=== PATIENT | male | born 1940 | race Two or more races ===

== ENCOUNTER 2017-04-28 14:11 | Inpatient (IN) | payer MEDICARE, BC ==
[~2017-04-28] VITALS: Ht 177.8 cm; Wt 105.7 kg
[2017-04-28] MEDS ORDERED: ASPI-605 PO (14:29)
[2017-04-28] MEDS ORDERED: OXYB5TAB11 PO (14:29)
[2017-04-28] MEDS ORDERED: HYDROCODONE PO (14:29)
[2017-04-28] MEDS ORDERED: DONE10TA44 PO (14:29)
[2017-04-28] MEDS ORDERED: METF10004 PO (14:29)
[2017-04-28] MEDS ORDERED: RISP0.5T20 PO (14:29)
[2017-04-28] MEDS ORDERED: CITA20TA16 PO (14:29)
[2017-04-28] MEDS ORDERED: LISI-603 PO (14:29)
[2017-04-28] MEDS ORDERED: TRAZ-144 PO (14:29)
[2017-04-28] MEDS ORDERED: BUPR-51 PO (14:29)
[2017-04-28] MEDS ORDERED: TAMS0.4C34 PO (14:29)
--- NOTE | 2017-04-28 14:29 | NUR ---
Dr Edwards at the bedside for MSE.
[2017-04-28] MEDS ORDERED: IV NORMAL SALINE 1000 ML BAG IV ONE (14:45)
[2017-04-28 15:07] LABS: BASOPHILS # (AUTO) 0.1 K/uL (0.0-8.0); BASOPHILS % (AUTO) 0.8 % (0.0-2.0); EOSINOPHILS # (AUTO) 0.1 K/uL (0.0-0.7); EOSINOPHILS % (AUTO) 0.7 % (0.0-7.0); HEMATOCRIT 31.5 % (36.7-47.1); HEMOGLOBIN 10.7 g/dL (12.5-16.3); LYMPHOCYTES # (AUTO) 1.2 K/uL (20.0-40.0); LYMPHOCYTES % (AUTO) 11.5 % (20.5-51.5); MEAN CORPUSCULAR HEMOGLOBIN 31.7 uug (23.8-33.4); MEAN CORPUSCULAR HGB CONC 34 g/dL (32.5-36.3); MEAN CORPUSCULAR VOLUME 93.8 fL (73.0-96.2); MONOCYTES # (AUTO) 0.9 K/uL (2.0-10.0); MONOCYTES % (AUTO) 8.8 % (0.0-11.0); NEUTROPHILS # (AUTO) 8.4 K/uL (1.8-8.9); NEUTROPHILS % (AUTO) 78.2 % (38.5-71.5); PLATELET COUNT (AUTO) 268 K/uL (152-348); RED BLOOD CELL COUNT(AUTO) 3.36 MIL/uL (4.06-5.63); WHITE BLOOD COUNT (AUTO) 10.7 K/uL (3.6-10.2)
[2017-04-28 15:22] LABS: ALANINE AMINOTRANSFERASE 28 U/L (16-63); ALKALINE PHOSPHATASE 68 U/L (50-136); ASPARTATE AMINOTRANSFERASE 32 U/L (15-37); BILIRUBIN,DIRECT 0.3 mg/dL (0.0-0.2); BILIRUBIN,TOTAL 1.1 mg/dL (0.2-1.0); CARBON DIOXIDE 26 mmol/L (21-32); CHLORIDE 103 mmol/L (98-107); CREATININE 0.9 mg/dL (0.6-1.3); GLUCOSE 149 mg/dL (74-106); LIPASE 59 U/L (73-393); POTASSIUM 3.7 mmol/L (3.5-5.1); TOTAL PROTEIN, SERUM 6.7 g/dL (6.4-8.2); UREA NITROGEN, BLOOD 24 mg/dL (7-18)
[2017-04-28 15:33] LABS: *BLOOD, URINE NEGATIVE (NEGATIVE); *CLARITY,URINE CLEAR (CLEAR); *COLOR,URINE DARK YELLOW (YELLOW); *KETONES,URINE TRACE (NEGATIVE); *PROTEIN,URINE 1+ (NEGATIVE); LEUKOCYTE ESTERASE ,URINE NEGATIVE (NEGATIVE); NITRITE, URINE NEGATIVE (NEGATIVE); PH,URINE 5.5 (5.0-8.0); UGLUCOSE NEGATIVE (NEGATIVE)
[2017-04-28 15:43] LABS: *BILIRUBIN,URIN NEGATIVE (NEGATIVE)
[2017-04-28 15:44] LABS: SQUAMOUS EPITHELIAL CELL,UR FEW /HPF (NONE SEEN); WBC,URINE 0-3 /HPF (0-3)
[2017-04-28 15:45] LABS: MUCUS,URINE MANY /LPF (0-FEW)
--- NOTE | 2017-04-28 15:45 | NUR ---
PATIENT ARRIVED TO UNIT AT 1545 VIA HOSPITAL BED FROM ER, STATES PAIN 5/10 BUT ONLY WHEN LEFT EXTREMITY IS MOVED, NO SIGNS OF DISTRESS, NO SKIN ISSUES NOTED, OBVIOUS BROKEN LEFT FEMUR, LEFT LEG ELEVATED ON PILLOW, VITALS FOLLOWS: 125/82, 93 PULSE, 98% ON ROOM AIR, 98.2 ORAL TEMPERATURE, 20 RESPIRATIONS, MD SALINAS NOTIFIED OF PATIENT'S ARRIVAL, ORDERS FOR PATIENT TO BE NPO OF MIDNIGHT 04/28/2017, INVENTORY ASSESSED, KATE FLEMING ON CASE FOR ORTHO Addendum: 04/28/17 at 1807 by WOLFGANG KIMBALL RN ORIENTED TO PERSON, PLACE AND TIME
[2017-04-28 16:00] VITALS: BP 125/82
--- NOTE | 2017-04-28 20:00 | NUR ---
RECEIVED PT. ALERT & FORGETFUL, FOLLOWS TO COMMAND.HEP LOCK INTACT & PATENT ON LFA. LEFT LEG IS SWOLLEN, ELEVATED ON PILLOW. DENIES PAIN. NOT IN ANY DISTRESS.
[2017-04-28 20:12] VITALS: BP 119/81
[2017-04-28] MEDS ORDERED: ONDANSETRON 4 MG/2 ML VIAL IV PRN (21:45)
[2017-04-28] MEDS ORDERED: FAMOTIDINE. 20 MG/2 ML VIAL IV ONE (21:45)
[2017-04-28] MEDS ORDERED: ALBUTEROL SULFATE 2.5 MG/3 ML NEBU NEB PRN (21:45)
[2017-04-28] MEDS ORDERED: ACETAMINOPHEN 650 MG SUPP.RECT RC PRN (21:45)
[2017-04-28] MEDS ORDERED: FAMOTIDINE 20 MG TABLET ONE (21:53)
[2017-04-28] MEDS ORDERED: LEVOFLOXACIN 500 MG/D5W 100 ML ONE (21:54)
[2017-04-28] MEDS: LEVOFLOXACIN 500 MG/D5W 500 MG in PREMIXED 1 EACH IV SCH (22:11)
[2017-04-28] MEDS: POTASSIUM CHLORIDE 20 MEQ in IV D5/ 0.9% NACL 1,000 ML IV PRN (22:32)
--- NOTE | 2017-04-28 22:32 | NUR ---
RICKEY IVF D5NS W/ 20MEQ KCL @ 70CC/HR. HS CARE DONE.
[2017-04-28] MEDS: MORPHINE SULFATE 4 MG/1 ML DISP.SYRIN IV PRN (23:26)
--- NOTE | 2017-04-28 23:26 | NUR ---
MEDICATED W/ MORPHINE 2MG IVP, V/S STABLE.
--- NOTE | 2017-04-28 23:40 | NUR ---
BUCKS TRACTION 5 LBS APPLIED ON LEFT LEG. PAS STOCKING APPLIED ON BOTH LOWER LEGS.
[2017-04-29] VITALS: BP 85/51
--- NOTE | 2017-04-29 | NUR ---
NPO AFTER MN.
[2017-04-29 04:00] VITALS: BP 98/57
--- NOTE | 2017-04-29 04:00 | NUR ---
V/S STABLE. DENIES PAIN.
--- NOTE | 2017-04-29 05:43 | NUR ---
REPOSITIONED IN BED W/ LEFT LEG ELEVATED ON PILLOW W/ BUCKS TRACTION IN PLACE.
[2017-04-29 06:33] LABS: BASOPHILS % (AUTO) 0.4 % (0.0-2.0); EOSINOPHILS # (AUTO) 0.1 K/uL (0.0-0.7); EOSINOPHILS % (AUTO) 1.2 % (0.0-7.0); HEMATOCRIT 28.9 % (36.7-47.1); HEMOGLOBIN 9.7 g/dL (12.5-16.3); LYMPHOCYTES # (AUTO) 1.8 K/uL (20.0-40.0); MEAN CORPUSCULAR HEMOGLOBIN 31.2 uug (23.8-33.4); MEAN CORPUSCULAR HGB CONC 34 g/dL (32.5-36.3); MEAN CORPUSCULAR VOLUME 93.3 fL (73.0-96.2); MONOCYTES # (AUTO) 0.9 K/uL (2.0-10.0); NEUTROPHILS # (AUTO) 5.6 K/uL (1.8-8.9); NEUTROPHILS % (AUTO) 66.4 % (38.5-71.5); PLATELET COUNT (AUTO) 270 K/uL (152-348); WHITE BLOOD COUNT (AUTO) 8.4 K/uL (3.6-10.2)
[2017-04-29 06:52] LABS: IRON, SERUM 51 ug/dL (50-175)
[2017-04-29 07:00] LABS: THYROID STIMULATING HORMONE 2.941 mIU/mL (0.358-3.740)
[2017-04-29 07:12] LABS: ALANINE AMINOTRANSFERASE 30 U/L (16-63); ALKALINE PHOSPHATASE 65 U/L (50-136); ASPARTATE AMINOTRANSFERASE 34 U/L (15-37); BILIRUBIN,TOTAL 0.9 mg/dL (0.2-1.0); CARBON DIOXIDE 29 mmol/L (21-32); CHLORIDE 103 mmol/L (98-107); CHOLESTEROL 136 mg/dL (<200); CREATININE 0.9 mg/dL (0.6-1.3); GLUCOSE 172 mg/dL (74-106); HDL CHOLESTEROL 58 mg/dL (40-60); MAGNESIUM 1.8 mg/dL (1.8-2.4); PHOSPHOROUS 2.4 mg/dL (2.5-4.9); POTASSIUM 3.6 mmol/L (3.5-5.1); TRIGLYCERIDES 64 MG/DL (30-150); UREA NITROGEN, BLOOD 27 mg/dL (7-18)
--- NOTE | 2017-04-29 08:00 | NUR ---
RESTING COMFORTABLY IN BED WITH 5LBS BUCKS TX MAINTAINED IN GOOD ALIGNMENT, NO SIGNS OF PAIN OR DISTRESS. REMAINS NPO WITH D2 NS PLUS KCL AT 70 ML/HR. REMAINS SR ON MONITOR. AWAITING SURGERY SCHEDULE BY DR LOVE
[2017-04-29] MEDS: FAMOTIDINE. 20 MG/2 ML VIAL IV SCH ×2 (08:02→22:33)
--- NOTE | 2017-04-29 10:00 | NUR ---
DR LOVE CALLED WITH ORDER FOR IM NAILING LEFT FEMUR. PATIENT AND DAUGHTER MADE AWARE. SCHEDULE FOR 4PM TODAY
[2017-04-29 11:30] VITALS: BP 90/43
--- NOTE | 2017-04-29 12:00 | NUR ---
DR JAVED NOTED LABS WITH ORDER FOR K-PHOS IV.
[2017-04-29] MEDS ORDERED: POTASSIUM PHOSPHATE MM 7.5 MMOL in IV DEXTROSE 5% 100 ML IV ONE (13:00)
[2017-04-29] MEDS ORDERED: POLYMYXIN B SULFATE 500,000 UNITS, BACITRACIN 50,000 UNITS, NORMAL SALINE 20 ML MC ONE ×3 (15:00)
[2017-04-29 15:40] VITALS: BP 133/74
[2017-04-29] MEDS: POTASSIUM CHLORIDE 20 MEQ in IV D5/ 0.9% NACL 1,000 ML IV PRN (16:23)
--- NOTE | 2017-04-29 17:30 | NUR ---
TO OR VIA BED ACCOMPANIED BY OR STAFF, ALSO SEE BY DR ARMENDARIZ SPOKE WITH FAMILY ABOUT SURGERY AND PLAN.
--- NOTE | 2017-04-29 17:50 | NUR ---
TRIPLE ANTIBIOTIC GIVEN IN OR
[2017-04-29] MEDS ORDERED: FENTANYL CITRATE 100 MCG/2 ML AMPUL ONE (20:58)
--- NOTE | 2017-04-29 21:30 | NUR ---
RECEIVED PT S/P IM NAILING OF LEFT FEMUR, DRESSING NOTED WITH BLOOD STAIN, MARKED WITH PEN.ICE PACKS APPLIED TO SITE. GOOD PALPABLE PERIPHERAL PULSES, DENIES ANY NUMBNESS, NO TINGLING. GIVEN MORPHINE FOR PAIN, STARTED REGULAR DIET, TOLERATED CRACKERS AND PUDDING AND JUICE. CONTINUE WITH IV FLUIDS AND ANTIBIOTICS,VSS,AFEBRILE, SINUS TACHY ON MONITOR HR 96. SCD ON , INCENTIVE SPIROMETER INSTRUCTED TO USE.WILL CONTINUE TO MONITOR.
[2017-04-29] MEDS: LEVOFLOXACIN 500 MG/D5W 500 MG in PREMIXED 1 EACH IV SCH (22:33)
[2017-04-29] MEDS: MORPHINE SULFATE 4 MG/1 ML DISP.SYRIN IV PRN (22:33)
[2017-04-30] VITALS: BP 108/79
[2017-04-30 04:00] VITALS: BP 116/69
[2017-04-30] MEDS: POTASSIUM CHLORIDE 20 MEQ in IV D5/ 0.9% NACL 1,000 ML IV PRN (05:28)
--- NOTE | 2017-04-30 06:28 | NUR ---
PT SLEPT WELL, CONTINUE WITH IV FLUIDS, BLOOD NOTED TO DRESSING SITE REMAINS THE SAME. NO SIGNIFICANT CHANGE OVERNIGHT, DENIES ANY PAIN. VSS AFEBRILE.SINUS RHYTHM/TACHY ON MONITOR.
[2017-04-30 07:18] LABS: ALANINE AMINOTRANSFERASE 47 U/L (16-63); ALKALINE PHOSPHATASE 62 U/L (50-136); ASPARTATE AMINOTRANSFERASE 44 U/L (15-37); BILIRUBIN,TOTAL 1.1 mg/dL (0.2-1.0); CARBON DIOXIDE 27 mmol/L (21-32); CHLORIDE 103 mmol/L (98-107); CREATININE 0.8 mg/dL (0.6-1.3); MAGNESIUM 1.8 mg/dL (1.8-2.4); PHOSPHOROUS 2.2 mg/dL (2.5-4.9); POTASSIUM 4.2 mmol/L (3.5-5.1); TOTAL PROTEIN, SERUM 6.3 g/dL (6.4-8.2); UREA NITROGEN, BLOOD 20 mg/dL (7-18)
[2017-04-30 07:27] LABS: GLUCOSE 223 mg/dL (74-106)
--- NOTE | 2017-04-30 08:00 | NUR ---
AWAKE ALERT AND ORIENTED X3 C/O SLIGHT MARTINEZ VS WNL. DRESSING LEFT HIP CLEAN WITH SLIGHT SEROUS SANGUINOUS DRAINAGE MIDDLE PART OF SURGICAL DRESSING. WIGGLE TOES FREELY WITH GOOD CAPILLARY REFILL. AFEBRILE. REMAINS SR ON MONITOR
[2017-04-30] MEDS: FAMOTIDINE. 20 MG/2 ML VIAL IV SCH ×2 (08:22→20:54)
[2017-04-30] MEDS: CYANOCOBALAMIN 1000 MCG/ML VIAL IM SCH (08:22)
[2017-04-30] MEDS: MORPHINE SULFATE 4 MG/1 ML DISP.SYRIN IV PRN (08:22)
[2017-04-30] MEDS ORDERED: MORPHINE SULFATE 4 MG/1 ML DISP.SYRIN IV PRN (10:30)
[2017-04-30] MEDS ORDERED: IV D5W-0.45% NS +20 KCL 1,000 ML IV PRN (10:30)
--- NOTE | 2017-04-30 10:38 | NUR ---
SEEN BY PHYSICAL THERAPIST FOR EVAL POST-OP DAY 1 SEE NOTES
[2017-04-30 11:37] VITALS: BP 125/72
[2017-04-30] MEDS ORDERED: NEUTRA PHOS PACKET PO ONE (12:15)
[2017-04-30] MEDS: HYDROCODONE/APAP 10-325 MG TABLET PO PRN (12:53)
[2017-04-30 16:00] VITALS: BP 154/67
[2017-04-30] MEDS: RIVAROXABAN 10 MG TABLET PO SCH (17:31)
--- NOTE | 2017-04-30 18:09 | NUR ---
DR ARMENDARIZ IN AWARE OF LOW PHOS, DAUGHTER SPOKE WITH MILL OPERATOR HELPER REGARDING DC PLAN, PATIENT STATUS CHANGED TO MS
[2017-04-30 20:06] VITALS: BP 128/74
[2017-04-30] MEDS: LEVOFLOXACIN 500 MG/D5W 500 MG in PREMIXED 1 EACH IV SCH (20:56)
[2017-05-01 03:59] VITALS: BP 128/79
--- NOTE | 2017-05-01 05:41 | NUR ---
PT SLEPT INTERMITTENTLY THROUGH THE NIGHT AND WAS EASILY AWOKEN, PT DENIED HAVING ANY PAIN, WHEN GENTLY PALPATING THE SURGICAL AREA PT DID COMPLAIN OF TENDERNESS BUT REFUSED ANY PAIN MEDICATION. PT DENIED HAVING ANY DIFFICULTY BREATHING. SMALL AREA OF THE SURGICAL INCISION SIGHT IS DRAINING SMALL AMOUNT OF SANGUINOUS FLUID. DRESSING CHANGED FOR SMALL INCISION. ALL NEEDS MET, SAFETY MEASURES ARE IN PLACE, CALL LIGHT WITHIN REACH, BED ALARM IS ON.
[2017-05-01 06:39] LABS: BASOPHILS # (AUTO) 0.1 K/uL (0.0-8.0); BASOPHILS % (AUTO) 0.4 % (0.0-2.0); EOSINOPHILS # (AUTO) 0.1 K/uL (0.0-0.7); EOSINOPHILS % (AUTO) 0.9 % (0.0-7.0); HEMATOCRIT 25.6 % (36.7-47.1); HEMOGLOBIN 8.6 g/dL (12.5-16.3); LYMPHOCYTES # (AUTO) 1.8 K/uL (20.0-40.0); LYMPHOCYTES % (AUTO) 15.6 % (20.5-51.5); MEAN CORPUSCULAR HEMOGLOBIN 31.4 uug (23.8-33.4); MEAN CORPUSCULAR HGB CONC 34 g/dL (32.5-36.3); MEAN CORPUSCULAR VOLUME 93.5 fL (73.0-96.2); MONOCYTES # (AUTO) 1.3 K/uL (2.0-10.0); NEUTROPHILS # (AUTO) 8.4 K/uL (1.8-8.9); NEUTROPHILS % (AUTO) 72.1 % (38.5-71.5); PLATELET COUNT (AUTO) 308 K/uL (152-348); RED BLOOD CELL COUNT(AUTO) 2.74 MIL/uL (4.06-5.63); WHITE BLOOD COUNT (AUTO) 11.6 K/uL (3.6-10.2)
[2017-05-01 06:46] LABS: ALANINE AMINOTRANSFERASE 47 U/L (16-63); ALKALINE PHOSPHATASE 64 U/L (50-136); ASPARTATE AMINOTRANSFERASE 38 U/L (15-37); BILIRUBIN,TOTAL 1.2 mg/dL (0.2-1.0); CARBON DIOXIDE 29 mmol/L (21-32); CHLORIDE 99 mmol/L (98-107); CREATININE 0.8 mg/dL (0.6-1.3); GLUCOSE 169 mg/dL (74-106); MAGNESIUM 1.6 mg/dL (1.8-2.4); PHOSPHOROUS 2.2 mg/dL (2.5-4.9); POTASSIUM 3.8 mmol/L (3.5-5.1); TOTAL PROTEIN, SERUM 6.1 g/dL (6.4-8.2); UREA NITROGEN, BLOOD 20 mg/dL (7-18)
[2017-05-01] MEDS: FAMOTIDINE. 20 MG/2 ML VIAL IV SCH (08:53)
[2017-05-01] MEDS: CYANOCOBALAMIN 1000 MCG/ML VIAL IM SCH (08:53)
[2017-05-01] MEDS: HYDROCODONE/APAP 10-325 MG TABLET PO PRN (09:55)
[2017-05-01 11:40] VITALS: BP 136/74
[2017-05-01 15:40] VITALS: BP 119/66
[2017-05-01] MEDS ORDERED: NEUTRA PHOS PACKET PO ONE (15:45)
[2017-05-01] MEDS: MAGNESIUM SULFATE/D5W 100 ML IV SCH ×2 (17:04→18:21)
[2017-05-01] MEDS: RIVAROXABAN 10 MG TABLET PO SCH (17:06)
--- NOTE | 2017-05-01 18:52 | NUR ---
Patient resting in bed, in no distress. Pain medication provided to patient prior to physical therapy. Patient denies pain, refused pain medication throughout the shift. Dressing on left hip/thigh clean/dry/intact, no bleeding noted. Temperature noted at 99.6, cooling measures provided. Patient is voiding, diaper moderately saturated with urine. Safety measures in place, bed alarm on.
--- NOTE | 2017-05-01 19:30 | NUR ---
PT IN ROOM ALERT AWAKE AND ORIENTED IN NO ACUTE DISTRESS. STATES MINIMAL PAIN TO LEFT LOWER EXTREMITY FX. ABLE TO FOLLOW SIMPLE COMMANDS. PT ENCOURAGED DEEP BREATHING EXERCISES INCLUDING TO USE IS. V/S ARE WNL WITH NO FEVER OR CHILLS. CONTINUE TO MONITOR. BOWEL SOUNDS ACTIVE X 4. REPORTS BM YESTERDAY PER PT. PT TO BE REPOSITIONED WITH 3 SIDE RAILS RAISED. CONTINUE TO MONITOR.
[2017-05-01] MEDS: FAMOTIDINE 20 MG TABLET PO SCH (20:00)
[2017-05-01 20:22] VITALS: BP 127/71
[2017-05-01] MEDS: LEVOFLOXACIN 500 MG/D5W 500 MG in PREMIXED 1 EACH IV SCH (21:00)
[2017-05-01] MEDS ORDERED: CEFTRIAXONE 1 G VIAL ONE (21:53)
[2017-05-01] MEDS: CEFTRIAXONE 1 G in IV DEXTROSE 5% 50 ML IV SCH (22:05)
[2017-05-02 04:00] VITALS: BP 168/86
--- NOTE | 2017-05-02 05:52 | NUR ---
PT IN ROOM ALERT AWAKE IN NO ACUTE DISTRESS. PT STATES MINOR PAIN. BP NOTED 168/86. NO FEVER OR CHILLS. AFFECTED LEFT LEG/HIP AREA MAINTAINED ON PILLOW. DRESSING TO LEFT KNEE REINFORCED WITH MEPILEX. PT ABLE TO FOLLOW SIMPLE COMMANDS. DENIES ANY SOB. ENCOURAGED DEEP BREATHING EXERCISES USING IS. HOB MAINTAINED 30 DEGREES WITH 3 SIDE RAILS RAISED. TYLENOL PRN TO BE ADMINISTERED FOR COMFORT MEASURES.
[2017-05-02] MEDS: ACETAMINOPHEN 325 MG TABLET PO PRN ×2 (06:16→19:57)
[2017-05-02 06:31] LABS: BASOPHILS % (AUTO) 0.1 % (0.0-2.0); LYMPHOCYTES % (AUTO) 7.2 % (20.5-51.5); MEAN CORPUSCULAR HGB CONC 34 g/dL (32.5-36.3); MONOCYTES # (AUTO) 1.4 K/uL (2.0-10.0); MONOCYTES % (AUTO) 9.8 % (0.0-11.0); NEUTROPHILS # (AUTO) 11.8 K/uL (1.8-8.9); NEUTROPHILS % (AUTO) 82.9 % (38.5-71.5)
[2017-05-02 06:39] LABS: CARBON DIOXIDE 24 mmol/L (21-32); CHLORIDE 97 mmol/L (98-107); CREATININE 0.8 mg/dL (0.6-1.3); GLUCOSE 233 mg/dL (74-106); MAGNESIUM 1.8 mg/dL (1.8-2.4); PHOSPHOROUS 2.3 mg/dL (2.5-4.9); POTASSIUM 3.5 mmol/L (3.5-5.1); UREA NITROGEN, BLOOD 16 mg/dL (7-18)
[2017-05-02 06:41] LABS: WHITE BLOOD COUNT (AUTO) 14.1 K/uL (3.6-10.2)
[2017-05-02 06:42] LABS: HEMATOCRIT 27.5 % (36.7-47.1); HEMOGLOBIN 9.3 g/dL (12.5-16.3); MEAN CORPUSCULAR HEMOGLOBIN 31.3 uug (23.8-33.4); MEAN CORPUSCULAR VOLUME 92.4 fL (73.0-96.2); RED BLOOD CELL COUNT(AUTO) 2.97 MIL/uL (4.06-5.63)
[2017-05-02 06:43] LABS: PLATELET COUNT (AUTO) 407 K/uL (152-348)
[2017-05-02] MEDS: CALCIUM CARB/VITAMIN D 500MG-200UNITS TABLET PO SCH ×2 (08:33→20:00)
[2017-05-02] MEDS: FAMOTIDINE 20 MG TABLET PO SCH ×2 (08:33→20:00)
[2017-05-02] MEDS: DOCUSATE SODIUM 100 MG CAPSULE PO SCH ×2 (08:33→20:00)
[2017-05-02] MEDS: MIRALAX 17 GM POWD.PACK PO SCH (08:34)
[2017-05-02] MEDS: CYANOCOBALAMIN 1000 MCG/ML VIAL IM SCH (08:34)
[2017-05-02] MEDS: HYDROCODONE/APAP 10-325 MG TABLET PO PRN (08:35)
[2017-05-02 11:29] VITALS: BP 126/72
[2017-05-02 14:50] LABS: *BILIRUBIN,URIN NEGATIVE (NEGATIVE); *BLOOD, URINE 1+ (NEGATIVE); *CLARITY,URINE SLIGHTLY CLOUDY (CLEAR); *COLOR,URINE YELLOW (YELLOW); *KETONES,URINE NEGATIVE (NEGATIVE); *PROTEIN,URINE NEGATIVE (NEGATIVE); LEUKOCYTE ESTERASE ,URINE NEGATIVE (NEGATIVE); NITRITE, URINE NEGATIVE (NEGATIVE)
[2017-05-02 14:56] LABS: BACTERIA,URINE NONE SEEN /HPF (NONE SEEN); UGLUCOSE 3+ (NEGATIVE); WBC,URINE 0-3 /HPF (0-3)
[2017-05-02 14:57] LABS: SQUAMOUS EPITHELIAL CELL,UR FEW /HPF (NONE SEEN)
[2017-05-02 15:46] VITALS: BP 114/68
[2017-05-02] MEDS ORDERED: NEUTRA PHOS PACKET PO ONE (16:30)
[2017-05-02] MEDS: RIVAROXABAN 10 MG TABLET PO SCH (17:04)
--- NOTE | 2017-05-02 18:11 | NUR ---
Pt resting in bed, in no distress. Dressing/sean on left thigh and leg intact/clean/dry, scant bleeding noted. Patient kept clean/dry, repositioned for comfort. Pain management as ordered. Safety measures in place, bed alarm on. Addendum: 05/02/17 at 1815 by WILBER MOROCHO RN Add: Incentive spirometer at bedside, instructed patient to use as ordered when awake, patient acknowledged but is unable to return demonstration.
--- NOTE | 2017-05-02 19:30 | NUR ---
PT IN ROOM ALERT AWAKE ORIENTED SUPINE IN NO ACUTE DISTRESS. ABLE TO FOLLOW SIMPLE COMMANDS. NO REPORTS OF FEVER OR CHILLS NOTED. C/O MINOR PAIN TO LEFT HIP AND LOWER EXTREMITY. NO ACTIVE BLEEDING PRESENT TO SITE OR DRAINAGE. PT REPOSITIONED AND REMINDED TO CONTINUE USING IS UP TO 1X Q 2 HRS. ENCOURAGED PT TO INCREASE FLUID INTAKE TO PREVENT CONSTIPATION. PT REPOSITIONED WITH HOB ELEVATED 30 DEGREES. TYLENOL PRN PO TO BE ADMINISTERED ALONG ROUTINE HS MEDICATIONS FOR COMFORT MEASURES. LEFT LOWER LEG ELEVATED ON PILLOW. CALL LIGHT PLACED WITHIN REACH AND BED ALARM ON. CONTINUE TO MONITOR.
[2017-05-02] MEDS: LACTOBACILLUS RHAMNOSUS GG 1 EACH CAPSULE PO SCH (20:00)
[2017-05-02 20:43] VITALS: BP 113/70
[2017-05-02] MEDS: LEVOFLOXACIN 500 MG/D5W 500 MG in PREMIXED 1 EACH IV SCH (21:00)
[2017-05-02] MEDS: CEFTRIAXONE 1 G in IV DEXTROSE 5% 50 ML IV SCH (21:59)
[2017-05-03 04:00] VITALS: BP 109/71
--- NOTE | 2017-05-03 05:44 | NUR ---
PT IN ROOM ALERT AWAKE IN NO ACUTE DISTRESS. ABLE TO FOLLOW SIMPLE COMMANDS. PT'S LEFT LOWER EXTREMITY MAINTAINED NON WEIGHT BERRING AND ELEVATED ON PILLOW. DENIES ANY PAIN OR DISCOMFORT AT THIS TIME. NO REACTION TO RECENT ABX IV ROCEPHIN AND LEVAQUIN THERAPY. CONTINUE TO MONITOR. CALL LIGHT PLACED WITHIN REACH AND HOB ELEVATED 30 DEGREES. NO DRAINAGE OR ACTIVE BLEEDING NOTED TO SURGICAL SITE.
[2017-05-03 07:03] LABS: BASOPHILS # (AUTO) 0.1 K/uL (0.0-8.0); BASOPHILS % (AUTO) 0.3 % (0.0-2.0); HEMATOCRIT 26.3 % (36.7-47.1); HEMOGLOBIN 8.6 g/dL (12.5-16.3); LYMPHOCYTES # (AUTO) 1.1 K/uL (20.0-40.0); LYMPHOCYTES % (AUTO) 4.3 % (20.5-51.5); MEAN CORPUSCULAR HEMOGLOBIN 30.8 uug (23.8-33.4); MEAN CORPUSCULAR HGB CONC 33 g/dL (32.5-36.3); MEAN CORPUSCULAR VOLUME 93.9 fL (73.0-96.2); MONOCYTES # (AUTO) 1.6 K/uL (2.0-10.0); MONOCYTES % (AUTO) 6.4 % (0.0-11.0); NEUTROPHILS # (AUTO) 22.6 K/uL (1.8-8.9); PLATELET COUNT (AUTO) 394 K/uL (152-348)
[2017-05-03 07:06] LABS: ALANINE AMINOTRANSFERASE 36 U/L (16-63); ALKALINE PHOSPHATASE 77 U/L (50-136); ASPARTATE AMINOTRANSFERASE 31 U/L (15-37); BILIRUBIN,TOTAL 1.5 mg/dL (0.2-1.0); CARBON DIOXIDE 28 mmol/L (21-32); CHLORIDE 99 mmol/L (98-107); CREATININE 0.9 mg/dL (0.6-1.3); GLUCOSE 233 mg/dL (74-106); MAGNESIUM 1.8 mg/dL (1.8-2.4); PHOSPHOROUS 2.6 mg/dL (2.5-4.9); POTASSIUM 3.8 mmol/L (3.5-5.1); TOTAL PROTEIN, SERUM 6.4 g/dL (6.4-8.2)
[2017-05-03 07:17] LABS: WHITE BLOOD COUNT (AUTO) 25.3 K/uL (3.6-10.2)
[2017-05-03 07:40] LABS: UREA NITROGEN, BLOOD 22 mg/dL (7-18)
[2017-05-03] MEDS: CYANOCOBALAMIN 1000 MCG/ML VIAL IM SCH (09:53)
[2017-05-03] MEDS: DOCUSATE SODIUM 100 MG CAPSULE PO SCH ×2 (09:53→20:08)
[2017-05-03] MEDS: MIRALAX 17 GM POWD.PACK PO SCH (09:53)
[2017-05-03] MEDS: LACTOBACILLUS RHAMNOSUS GG 1 EACH CAPSULE PO SCH ×2 (09:53→20:09)
[2017-05-03] MEDS: FAMOTIDINE 20 MG TABLET PO SCH ×2 (09:53→20:09)
[2017-05-03] MEDS: CALCIUM CARB/VITAMIN D 500MG-200UNITS TABLET PO SCH ×2 (09:53→20:08)
[2017-05-03 11:03] VITALS: BP 117/75
--- NOTE | 2017-05-03 11:41 | NUR ---
CLINICAL PHARMACY NOTE:VANCOMYCIN DOSING Request for vancomycin dosing on 76 y/o male 5'10" 234lbs for suspected infection Temp 98.4 BUN 22 Scr 0.9 WBC 25.3 also on Zosyn start vancomycin 1250mg ivpb q12h estimated trough 17. Will order trough level prior to 4th dose. Will continue to monitor.
[2017-05-03] MEDS: PIPERACILLIN/TAZOBACTAM/D5W 3.375 G in PREMIXED 1 EACH IV SCH ×2 (12:43→20:01)
[2017-05-03 12:53] LABS: BAND % (MANUAL) 4 % (0-10); LYMPHOCYTES % (MANUAL) 3 % (20-40); MONOCYTES % (MANUAL) 10 % (2-10); NEUTROPHILS % (MANUAL) 83 % (42-75)
[2017-05-03] MEDS: VANCOMYCIN IV 1,250 MG in IV DEXTROSE 5% 500 ML IV SCH (13:46)
[2017-05-03 15:00] VITALS: BP 114/65
[2017-05-03] MEDS: RIVAROXABAN 10 MG TABLET PO SCH (17:13)
[2017-05-03] MEDS: ACETAMINOPHEN 325 MG TABLET PO PRN (20:09)
[2017-05-03 20:13] VITALS: BP 127/79
--- NOTE | 2017-05-03 20:45 | NUR ---
PT'S ON BED REST COMFORTABLY;HAD LARGE BOWEL MOVEMENT;PM CARE'S GIVEN TO PT W/MAXIMAL ASSISTANCE;PT'S COOPERATIVE.MEDICATION'S GIVEN;PT TOLERATED WELL NOTED.BED ALARM'S ON.KEPT DRY D/S AT THE LEFT HIP SX SITE NOTED.
[2017-05-04] MEDS: VANCOMYCIN IV 1,250 MG in IV DEXTROSE 5% 500 ML IV SCH ×2 (00:56→12:57)
[2017-05-04] MEDS: PIPERACILLIN/TAZOBACTAM/D5W 3.375 G in PREMIXED 1 EACH IV SCH ×3 (03:15→20:31)
[2017-05-04 04:31] VITALS: BP 114/72
--- NOTE | 2017-05-04 06:15 | NUR ---
ASSISTED PT FOR AM;SKIN CARE AT THIS TIME;PT'S COOPERATIVE W/ASSISTANCE,DENIED OF PAIN;CLEAN AND DRY AT THE LEFT HIP SX SITE W/DRY D/S'S ON.FALL PREVENTION REINFORCED.PT REMAINED FREE FROM INJURY,NO FEVER THIS MORNING.LAB TEST'S DONE ORDER.KEPT COMFORT.BED ALARM'S ON.
[2017-05-04 07:01] LABS: ALANINE AMINOTRANSFERASE 30 U/L (16-63); ALKALINE PHOSPHATASE 74 U/L (50-136); ASPARTATE AMINOTRANSFERASE 30 U/L (15-37); BILIRUBIN,TOTAL 1.6 mg/dL (0.2-1.0); CARBON DIOXIDE 29 mmol/L (21-32); CHLORIDE 95 mmol/L (98-107); CREATININE 0.9 mg/dL (0.6-1.3); GLUCOSE 260 mg/dL (74-106); MAGNESIUM 1.7 mg/dL (1.8-2.4); PHOSPHOROUS 2.3 mg/dL (2.5-4.9); POTASSIUM 3.3 mmol/L (3.5-5.1); TOTAL PROTEIN, SERUM 6.4 g/dL (6.4-8.2); UREA NITROGEN, BLOOD 22 mg/dL (7-18)
[2017-05-04 07:15] LABS: BASOPHILS % (AUTO) 0.1 % (0.0-2.0); HEMATOCRIT 28.4 % (36.7-47.1); HEMOGLOBIN 9.4 g/dL (12.5-16.3); LYMPHOCYTES # (AUTO) 0.6 K/uL (20.0-40.0); LYMPHOCYTES % (AUTO) 3.6 % (20.5-51.5); MEAN CORPUSCULAR HEMOGLOBIN 30.8 uug (23.8-33.4); MEAN CORPUSCULAR HGB CONC 33 g/dL (32.5-36.3); MEAN CORPUSCULAR VOLUME 92.9 fL (73.0-96.2); MONOCYTES # (AUTO) 0.6 K/uL (2.0-10.0); MONOCYTES % (AUTO) 3.1 % (0.0-11.0); NEUTROPHILS # (AUTO) 16.6 K/uL (1.8-8.9); NEUTROPHILS % (AUTO) 93.2 % (38.5-71.5); PLATELET COUNT (AUTO) 446 K/uL (152-348); RED BLOOD CELL COUNT(AUTO) 3.06 MIL/uL (4.06-5.63); WHITE BLOOD COUNT (AUTO) 17.8 K/uL (3.6-10.2)
[2017-05-04] MEDS: CALCIUM CARB/VITAMIN D 500MG-200UNITS TABLET PO SCH ×2 (08:52→20:04)
[2017-05-04] MEDS: MIRALAX 17 GM POWD.PACK PO SCH (08:52)
[2017-05-04] MEDS: FAMOTIDINE 20 MG TABLET PO SCH ×2 (08:52→20:04)
[2017-05-04] MEDS: CYANOCOBALAMIN 1000 MCG/ML VIAL IM SCH (08:52)
[2017-05-04] MEDS: DOCUSATE SODIUM 100 MG CAPSULE PO SCH ×2 (08:52→20:05)
[2017-05-04] MEDS: LACTOBACILLUS RHAMNOSUS GG 1 EACH CAPSULE PO SCH ×2 (08:52→20:04)
[2017-05-04 09:09] LABS: BAND % (MANUAL) 2 % (0-10); LYMPHOCYTES % (MANUAL) 9 % (20-40); MONOCYTES % (MANUAL) 1 % (2-10); NEUTROPHILS % (MANUAL) 88 % (42-75)
[2017-05-04 11:30] VITALS: BP 123/69
[2017-05-04 15:26] VITALS: BP 111/62
[2017-05-04] MEDS ORDERED: NEUTRA PHOS PACKET PO ONE (15:30)
[2017-05-04] MEDS ORDERED: POTASSIUM CHLORIDE 20 MEQ TAB.PRT.SR PO ONE (15:45)
[2017-05-04] MEDS: MAGNESIUM SULFATE/D5W 100 ML IV SCH ×2 (16:00→17:06)
--- NOTE | 2017-05-04 16:49 | NUR ---
CLINICAL PHARMACY NOTE:VANCOMYCIN DOSING Continue vancomycin dosing on 76 y/o male 5'10" 234lbs for suspected infection Temp 99.7 BUN 22 Scr 0.9 WBC 17.8 also on Zosyn Continue vancomycin 1250mg ivpb q12h estimated trough 17. Will order trough level prior to 4th dose(ordered for tomorrow at 0030). Will continue to monitor.
[2017-05-04] MEDS: RIVAROXABAN 10 MG TABLET PO SCH (17:45)
[2017-05-04 19:55] VITALS: BP 119/69
--- NOTE | 2017-05-04 20:00 | NUR ---
RECEIVED PATIENT AWAKE IN BED. PATIENT IS A/O X3. ESTONIAN SPEAKING BUT ABLE TO MAKE NEEDS KNOWN. DENIES PAIN OR DISCOMFORT AT THIS TIME. VS WNL. H/L INTACT AND PATENT. NO RESP. DISTRESS NOTED. DRESSING NOTED TO LEFT HIP. INTACT. CALL LIGHT IN REACH. ALL NEEDS ATTENDED. WILL CONTINUE TO MONITOR AND ASSESS.
[2017-05-05] MEDS: VANCOMYCIN IV 1,250 MG in IV DEXTROSE 5% 500 ML IV SCH ×4 (00:11→20:16)
[2017-05-05 04:25] VITALS: BP 116/66
[2017-05-05] MEDS: PIPERACILLIN/TAZOBACTAM/D5W 3.375 G in PREMIXED 1 EACH IV SCH ×3 (04:38→22:06)
--- NOTE | 2017-05-05 05:46 | NUR ---
PATIENT ASLEEP IN BED. EASILY AROUSABLE. VS WNL. DENIES PAIN. DRESSING NOTED TO LEFT HIP/LATERAL LEG, CLEAN, DRY AND INTACT. NEW IV HEPLOCK STARTED TO LEFT FA #20 GAUGE. SLEPT WELL THROUGHOUT THE NIGHT. CALL LIGHT IN REACH. BED ALARM ON. ALL NEEDS ATTENDED. WILL CONTINUE TO MONITOR.
[2017-05-05 06:24] LABS: CARBON DIOXIDE 28 mmol/L (21-32); CHLORIDE 92 mmol/L (98-107); CREATININE 0.8 mg/dL (0.6-1.3); MAGNESIUM 1.8 mg/dL (1.8-2.4); PHOSPHOROUS 2.1 mg/dL (2.5-4.9); POTASSIUM 3.4 mmol/L (3.5-5.1); UREA NITROGEN, BLOOD 23 mg/dL (7-18)
[2017-05-05 06:29] LABS: GLUCOSE 315 mg/dL (74-106)
--- NOTE | 2017-05-05 06:30 | NUR ---
RECEIVED CALL FROM LAB THAT PATIENTS BLOOD SUGAR FROM AM LAB DRAW IS 315. NOTIFIED MBA INTERN AND RECHECKED BLOOD SUGAR WITH GLUCOSE METER AND RECEIVED 284. CALLED OUT TO DR. HERNANDEZ TO INFORM HIM OF PATIENTS BLOOD SUGAR RESULTS. PATIENT ALS0 STATED HE TAKES METFORMIN AT HOME. WAITING FOR CALL BACK WITH FURTHER ORDERS, WILL ENDORSE TO AM SHIFT. ALL NEEDS ATTENDED.
--- NOTE | 2017-05-05 07:00 | NUR ---
RECEIVED PATIENT ON BED, A AND O X 2-3, MOHAWK SPEAKING BUT ABLE TO MAKE NEEDS KNOWN. NO ACUTE DISTRESS NOTED. IV ACCESS ON LEFT FOREARM #22, INTACT AND PATENT. SURGICAL DRESSING CLEAN AND INTACT, CHANGED DURING HEALTH COMMUNICATIONS SPECIALIST. NO COMPLAINTS OF PAIN AND DISCOMFORT AT THIS TIME. COMFORT MEASURES PROVIDED. CALL LIGHT WITHIN REACH. WILL CONT TO MONITOR CLOSELY.
[2017-05-05] MEDS ORDERED: DEXTROSE 50% 50 ML DISP.SYRIN IV PRN (07:15)
[2017-05-05] MEDS: BLOOD SUGAR DIAGNOSTIC 1 EACH STRIP VI SCH ×4 (07:15→20:26)
--- NOTE | 2017-05-05 07:15 | NUR ---
[facility] NOTIFIED OF PATIENTS BLOOD SUGAR. RECEIVED NEW ORDERS. ALL NEEDS ATTENDED.
[2017-05-05] MEDS: CYANOCOBALAMIN 1000 MCG/ML VIAL IM SCH (08:22)
[2017-05-05] MEDS: FAMOTIDINE 20 MG TABLET PO SCH ×2 (08:22→20:16)
[2017-05-05] MEDS: LACTOBACILLUS RHAMNOSUS GG 1 EACH CAPSULE PO SCH ×2 (08:22→20:16)
[2017-05-05] MEDS: CALCIUM CARB/VITAMIN D 500MG-200UNITS TABLET PO SCH ×2 (08:26→20:16)
[2017-05-05] MEDS: MIRALAX 17 GM POWD.PACK PO SCH (08:26)
[2017-05-05] MEDS: DOCUSATE SODIUM 100 MG CAPSULE PO SCH ×2 (08:27→20:17)
[2017-05-05] MEDS: INSULIN REGULAR, HUMAN 300 UNIT/3 ML VIAL SQ PRN ×4 (08:34→20:30)
[2017-05-05 11:28] VITALS: BP 112/71
[2017-05-05] MEDS ORDERED: POTASSIUM CHLORIDE 20 MEQ TAB.PRT.SR PO ONE (14:00)
--- NOTE | 2017-05-05 15:44 | NUR ---
CLINICAL PHARMACY NOTE:VANCOMYCIN DOSING Continue vancomycin dosing on 76 y/o male 5'10" 234lbs for suspected infection Temp 98.9 BUN 23 Scr 0.8 WBC 17.8 (05/04) Trough: 9.6 today at 0030 Assessment/Plan Rescheduled regimen to 1250mg q8h for new estimated trough of 17.3, first dose today at 1200. Trough ordered before 4th scheduled dose (due tomorrow at 1130). Will check level and adjust as needed. Will follow
[2017-05-05 16:00] VITALS: BP 93/57
[2017-05-05] MEDS ORDERED: NEUTRA PHOS PACKET PO ONE (16:45)
[2017-05-05] MEDS: RIVAROXABAN 10 MG TABLET PO SCH (17:05)
--- NOTE | 2017-05-05 19:30 | NUR ---
PT IN ROOM ALERT AWAKE AND ORIENTED TO SELF AND . PT DENIES ANY PAIN OR DISCOMFORT. SURGICAL SITE COVERED WITH DRESSING WITH NO ACTIVE BLEEDING OR DRAINAGE NOTED. ABLE TO FOLLOW SIMPLE COMMANDS BUT NEEDS MAXIMUM ASSISTANCE WITH ADLs. PT NOTED WITH TEMP 100.2. SKIN WARM TO TOUCH. COOLING MEASURES ENFORCED WITH ADMINISTERING OF TYLENOL 650MG PO. CONTINUE TO MONITOR. PT TO CONTINUE ROUTINE HS MEDICATION INCLUDING ATB IV THERAPY. BED ALARM ON. 3 SIDE RAILS RAISED. LEFT LOWER EXTREMITY PLACED ON PILLOW.
[2017-05-05 20:02] VITALS: BP 123/68
[2017-05-05] MEDS: ACETAMINOPHEN 325 MG TABLET PO PRN (20:16)
[2017-05-06] MEDS: PIPERACILLIN/TAZOBACTAM/D5W 3.375 G in PREMIXED 1 EACH IV SCH ×3 (03:00→20:34)
[2017-05-06 04:00] VITALS: BP 127/69
[2017-05-06] MEDS: VANCOMYCIN IV 1,250 MG in IV DEXTROSE 5% 500 ML IV SCH (04:20)
--- NOTE | 2017-05-06 05:27 | NUR ---
PT IN ROOM ALERT AWAKE AND ABLE TO SLEEP UP TO 6 HRS. NO REACTION TO CURRENT IV ABX THERAPY VANCOMYCIN AND ZOSYN. NO S/S OF HYPER/HYPOGLYCEMIA. NO FEVER OR CHILLS. HOB MAINTAINED 30 DEGREES. PT COMPLIANT WITH PLAN OF CARE. LEFT LEG MAINTAINED ELEVATED ON PILLOW. CONTINUE TO MONITOR. CALL LIGHT PLACED WITHIN REACH.
[2017-05-06 06:03] LABS: BASOPHILS # (AUTO) 0.1 K/uL (0.0-8.0); BASOPHILS % (AUTO) 0.4 % (0.0-2.0); EOSINOPHILS % (AUTO) 0.2 % (0.0-7.0); HEMOGLOBIN 8.3 g/dL (12.5-16.3); LYMPHOCYTES # (AUTO) 0.6 K/uL (20.0-40.0); LYMPHOCYTES % (AUTO) 4.1 % (20.5-51.5); MEAN CORPUSCULAR HEMOGLOBIN 30.3 uug (23.8-33.4); MEAN CORPUSCULAR HGB CONC 33 g/dL (32.5-36.3); MEAN CORPUSCULAR VOLUME 90.9 fL (73.0-96.2); MONOCYTES # (AUTO) 1.4 K/uL (2.0-10.0); MONOCYTES % (AUTO) 9.3 % (0.0-11.0); NEUTROPHILS # (AUTO) 13.1 K/uL (1.8-8.9); PLATELET COUNT (AUTO) 430 K/uL (152-348); RED BLOOD CELL COUNT(AUTO) 2.75 MIL/uL (4.06-5.63); WHITE BLOOD COUNT (AUTO) 15.2 K/uL (3.6-10.2)
[2017-05-06 06:13] LABS: CARBON DIOXIDE 29 mmol/L (21-32); CHLORIDE 88 mmol/L (98-107); CREATININE 0.9 mg/dL (0.6-1.3); GLUCOSE 272 mg/dL (74-106); MAGNESIUM 1.5 mg/dL (1.8-2.4); PHOSPHOROUS 2.6 mg/dL (2.5-4.9); POTASSIUM 3.1 mmol/L (3.5-5.1); UREA NITROGEN, BLOOD 19 mg/dL (7-18); URIC ACID 1.8 mg/dL (3.5-7.2)
[2017-05-06] MEDS: BLOOD SUGAR DIAGNOSTIC 1 EACH STRIP VI SCH ×4 (06:34→21:11)
[2017-05-06] MEDS: INSULIN REGULAR, HUMAN 300 UNIT/3 ML VIAL SQ PRN ×4 (07:37→20:40)
[2017-05-06] MEDS: DOCUSATE SODIUM 100 MG CAPSULE PO SCH ×2 (08:03→20:34)
[2017-05-06] MEDS: LACTOBACILLUS RHAMNOSUS GG 1 EACH CAPSULE PO SCH ×2 (08:03→20:34)
[2017-05-06] MEDS: CYANOCOBALAMIN 1000 MCG/ML VIAL IM SCH (08:03)
[2017-05-06] MEDS: CALCIUM CARB/VITAMIN D 500MG-200UNITS TABLET PO SCH ×2 (08:04→20:34)
[2017-05-06] MEDS: FAMOTIDINE 20 MG TABLET PO SCH ×2 (08:04→20:34)
[2017-05-06] MEDS: MIRALAX 17 GM POWD.PACK PO SCH (08:04)
[2017-05-06] MEDS: IV NS 1000 ML 1,000 ML IV PRN (08:28)
[2017-05-06] MEDS ORDERED: IV SODIUM CHLORIDE 3% 500 ML IV SCH (09:00)
[2017-05-06 09:24] LABS: NEUTROPHILS % (MANUAL) 86 % (42-75)
[2017-05-06 09:25] LABS: LYMPHOCYTES % (MANUAL) 5 % (20-40); MONOCYTES % (MANUAL) 9 % (2-10)
[2017-05-06] MEDS ORDERED: CEFAZOLIN 1 G VIAL MC ONE (10:07)
[2017-05-06] MEDS ORDERED: PROPOFOL 200 MG/20 ML BOTTLE IV ONE (10:07)
[2017-05-06] MEDS ORDERED: LIDOCAINE HCL 1% 20 ML VIAL MC ONE (10:07)
[2017-05-06] MEDS ORDERED: SEVOFLURANE 250 ML BOTTLE IH ONE (10:07)
[2017-05-06] MEDS ORDERED: DEXAMETHASONE SOD PHOSPHATE 4 MG INJ IV ONE (10:07)
[2017-05-06 11:30] VITALS: BP 123/69
--- NOTE | 2017-05-06 12:53 | NUR ---
CLINICAL PHARMACY NOTE:VANCOMYCIN DOSING Continue vancomycin dosing on 76 y/o male 5'10" 234lbs for suspected infection(SIRS with leukocytosis) Temp 98.3 BUN 19 Scr 0.9 WBC 15.2 Trough: 20.9 yesterday at 1130 Assessment/Plan Rescheduled regimen to 1500mg q11h for new estimated trough of 16, first dose today at 1600. Vancomycin trough by 4th dose(not ordered yet). Will follow daily.
[2017-05-06 13:16] LABS: CARBON DIOXIDE 30 mmol/L (21-32); CHLORIDE 93 mmol/L (98-107); GLUCOSE 235 mg/dL (74-106); POTASSIUM 3.4 mmol/L (3.5-5.1); UREA NITROGEN, BLOOD 21 mg/dL (7-18)
[2017-05-06] MEDS ORDERED: POTASSIUM CHLORIDE 20 MEQ TAB.PRT.SR PO ONE (14:15)
[2017-05-06] MEDS: MAGNESIUM SULFATE/D5W 100 ML IV SCH ×2 (14:35→15:09)
[2017-05-06] MEDS: VANCOMYCIN IV 1,500 MG in IV NORMAL SALINE 500 ML IV SCH (15:17)
[2017-05-06 15:40] VITALS: BP 103/59
[2017-05-06] MEDS: RIVAROXABAN 10 MG TABLET PO SCH (17:40)
--- NOTE | 2017-05-06 19:25 | NUR ---
RECEIVED PT IN BED, ASLEEP. IN NO ACUTE DISTRESS. NO S/SX OF BEVERLY OR SOB NOTED. IV SITE ON RFA AND LFA INTACT AND PATENT. IVF INFUSING. SAFETY MEASURE INITIATED AND CALL RICK WITHIN REACH.
[2017-05-06 20:44] VITALS: BP 112/66
--- NOTE | 2017-05-07 00:53 | NUR ---
Noted Vancomycin trough result at 05/06/17 at 11:25am was 20.9. Pt is due to get another dose of Vancomycin at 0300 today. Informed c d reactor operator Pharmacist Kevin and informed of lab result and states understanding. Per Pharmacist/Kevin, okay to give Vancomycin at 0300 today and disregard parameter for this dose.
[2017-05-07] MEDS: VANCOMYCIN IV 1,500 MG in IV NORMAL SALINE 500 ML IV SCH ×2 (02:05→14:56)
[2017-05-07 04:29] VITALS: BP 101/68
[2017-05-07] MEDS: PIPERACILLIN/TAZOBACTAM/D5W 3.375 G in PREMIXED 1 EACH IV SCH ×3 (04:41→20:53)
--- NOTE | 2017-05-07 06:17 | NUR ---
PT ALERT, ORIENTED AND VERBALLY RESPONSIVE. ONLY SAYS -2 WORDS WHEN SPOKE TO. VS WNL. DENIES ANY PAIN OR SOB AT THIS TIME. O2 SAT AT 93% RA. IN NO ACUTE DISTRESS. IV SITE ON RFA AND LFA INTACT AND PATENT. IVF INFUSING ON LFA. DRESSING ON INCISION SITE CHANGED. HITESH INTACT. SAFETY MEASURE MAINTAINED AND CALL RICK WITHIN REACH.
[2017-05-07] MEDS: BLOOD SUGAR DIAGNOSTIC 1 EACH STRIP VI SCH ×4 (06:32→20:40)
[2017-05-07 06:51] LABS: BASOPHILS % (AUTO) 0.1 % (0.0-2.0); EOSINOPHILS # (AUTO) 0.1 K/uL (0.0-0.7); EOSINOPHILS % (AUTO) 0.9 % (0.0-7.0); HEMATOCRIT 22.9 % (36.7-47.1); HEMOGLOBIN 7.8 g/dL (12.5-16.3); LYMPHOCYTES # (AUTO) 1.2 K/uL (20.0-40.0); MEAN CORPUSCULAR HEMOGLOBIN 30.7 uug (23.8-33.4); MEAN CORPUSCULAR HGB CONC 34 g/dL (32.5-36.3); MEAN CORPUSCULAR VOLUME 90.7 fL (73.0-96.2); MONOCYTES # (AUTO) 1.2 K/uL (2.0-10.0); MONOCYTES % (AUTO) 8.6 % (0.0-11.0); NEUTROPHILS # (AUTO) 11.1 K/uL (1.8-8.9); NEUTROPHILS % (AUTO) 81.4 % (38.5-71.5); PLATELET COUNT (AUTO) 503 K/uL (152-348); RED BLOOD CELL COUNT(AUTO) 2.53 MIL/uL (4.06-5.63); WHITE BLOOD COUNT (AUTO) 13.7 K/uL (3.6-10.2)
[2017-05-07] MEDS: IV NS 1000 ML 1,000 ML IV PRN (06:53)
[2017-05-07 06:55] LABS: ALANINE AMINOTRANSFERASE 29 U/L (16-63); ALKALINE PHOSPHATASE 79 U/L (50-136); ASPARTATE AMINOTRANSFERASE 37 U/L (15-37); BILIRUBIN,TOTAL 0.8 mg/dL (0.2-1.0); CARBON DIOXIDE 28 mmol/L (21-32); CHLORIDE 100 mmol/L (98-107); CREATININE 0.9 mg/dL (0.6-1.3); GLUCOSE 190 mg/dL (74-106); MAGNESIUM 1.9 mg/dL (1.8-2.4); PHOSPHOROUS 2.7 mg/dL (2.5-4.9); POTASSIUM 3.4 mmol/L (3.5-5.1); TOTAL PROTEIN, SERUM 5.8 g/dL (6.4-8.2); UREA NITROGEN, BLOOD 19 mg/dL (7-18)
--- NOTE | 2017-05-07 06:58 | NUR ---
Telephone call from sukhi/Edgar and reported critical value of Albumin 1.3. Will inform day shift nurse.
--- NOTE | 2017-05-07 08:45 | NUR ---
PT REFUSED INSULIN COVERAGE. PT SHOWS NO S/S OF HYPER OR HYPO GLYCEMIA. CONTINUE TO MONITOR PT AND TO ENCOURAGE NEXT COVERAGE.
[2017-05-07] MEDS: MIRALAX 17 GM POWD.PACK PO SCH (09:00)
[2017-05-07] MEDS: DOCUSATE SODIUM 100 MG CAPSULE PO SCH ×2 (09:00→20:41)
[2017-05-07] MEDS: CALCIUM CARB/VITAMIN D 500MG-200UNITS TABLET PO SCH ×2 (09:20→20:41)
[2017-05-07] MEDS: LACTOBACILLUS RHAMNOSUS GG 1 EACH CAPSULE PO SCH ×2 (09:20→20:41)
[2017-05-07] MEDS: FAMOTIDINE 20 MG TABLET PO SCH ×2 (09:20→20:41)
--- NOTE | 2017-05-07 09:44 | NUR ---
Pt had a soft BM and refused the Colace and miralax stating, " I can go poop, I don't need it"
[2017-05-07 10:47] LABS: BAND % (MANUAL) 2 % (0-10); EOSINOPHILS % (MANUAL) 3 % (0-8); LYMPHOCYTES % (MANUAL) 6 % (20-40); METAMYELOCYTES % 1 % (0-1); MONOCYTES % (MANUAL) 4 % (2-10); MYELOCYTES % 2 % (0-0); NEUTROPHILS % (MANUAL) 82 % (42-75)
[2017-05-07 11:30] VITALS: BP 110/71
[2017-05-07] MEDS: INSULIN REGULAR, HUMAN 300 UNIT/3 ML VIAL SQ PRN ×2 (12:04→20:40)
[2017-05-07] MEDS ORDERED: POTASSIUM CHLORIDE 20 MEQ TAB.PRT.SR PO ONE (14:15)
--- NOTE | 2017-05-07 14:24 | NUR ---
CLINICAL PHARMACY NOTE:VANCOMYCIN DOSING Continue vancomycin dosing on 76 y/o male 5'10" 234lbs for suspected infection(SIRS with leukocytosis) Temp 98.4 BUN 19 Scr 0.9 WBC 13.7 Trough: 20.9 yesterday at 1130 Assessment/Plan Will continue new regimen of 1500mg q11h for new estimated trough of 16, 3rd dose today at 1400. Vancomycin trough by 4th dose( ordered for tomorrow early am at 0030). RN endorsed to hold dose if trough >20. Will check in am and adjust as needed. Will follow daily.
[2017-05-07 15:30] VITALS: BP 95/53
[2017-05-07] MEDS: RIVAROXABAN 10 MG TABLET PO SCH (17:29)
--- NOTE | 2017-05-07 18:39 | NUR ---
PT OBSERVED RESTING IN BED WITH NO SIGNS OF RESPIRATORY DISTRESS. NO S/S OF HYPO OR HYPER GLYCEMIA AT THIS TIME. LEFT LEG SWOLLEN AND DISCOLORED, NO MAJOR CHANGES. PT UNABLE TO TURN SELF AND REFUSES PT. PT IS AOX1, BUT CAN VERBALIZE NEEDS. CONTINUE TO MONITOR PT.
--- NOTE | 2017-05-07 20:00 | NUR ---
RECEIVED PATIENT ASLEEP IN BED. EASILY AROUSABLE. ALERT TO SELF ONLY. NEEDS REDIRECTION AT TIMES. VS WNL. PATIENT DENIES ANY PAIN OR DISCOMFORT. NO RESP. DISTRESS NOTED. DRESSING NOTED TO LEFT HIP C/D/I. ON RA. BED ALARM ON. CALL LIGHT IN REACH. ALL NEEDS ATTENDED, WILL CONTINUE TO MONITOR AND ASSESS.
[2017-05-07 20:20] VITALS: BP 130/70
[2017-05-08] MEDS: IV NS 1000 ML 1,000 ML IV PRN (00:29)
[2017-05-08] MEDS: VANCOMYCIN IV 1,500 MG in IV NORMAL SALINE 500 ML IV SCH (01:00)
[2017-05-08 04:00] VITALS: BP 125/71
[2017-05-08] MEDS: PIPERACILLIN/TAZOBACTAM/D5W 3.375 G in PREMIXED 1 EACH IV SCH ×2 (04:00→12:17)
[2017-05-08 06:31] LABS: CARBON DIOXIDE 28 mmol/L (21-32); CHLORIDE 98 mmol/L (98-107); CREATININE 0.9 mg/dL (0.6-1.3); GLUCOSE 202 mg/dL (74-106); POTASSIUM 3.5 mmol/L (3.5-5.1); UREA NITROGEN, BLOOD 17 mg/dL (7-18)
[2017-05-08] MEDS: BLOOD SUGAR DIAGNOSTIC 1 EACH STRIP VI SCH ×4 (06:54→20:57)
[2017-05-08] MEDS: INSULIN REGULAR, HUMAN 300 UNIT/3 ML VIAL SQ PRN ×4 (07:53→20:59)
[2017-05-08] MEDS: FAMOTIDINE 20 MG TABLET PO SCH ×2 (08:00→20:53)
[2017-05-08] MEDS: CALCIUM CARB/VITAMIN D 500MG-200UNITS TABLET PO SCH ×2 (08:00→20:53)
[2017-05-08] MEDS: LACTOBACILLUS RHAMNOSUS GG 1 EACH CAPSULE PO SCH ×2 (08:00→20:53)
[2017-05-08] MEDS: MIRALAX 17 GM POWD.PACK PO SCH (08:02)
[2017-05-08] MEDS: DOCUSATE SODIUM 100 MG CAPSULE PO SCH ×2 (08:03→20:53)
--- NOTE | 2017-05-08 08:03 | NUR ---
Pt stools are soft. Miralax and Colace held. continue to monitor pt.
[2017-05-08] MEDS ORDERED: VANCOMYCIN IV 1,500 MG in IV DEXTROSE 5% 500 ML IV SCH (09:00)
[2017-05-08 11:00] VITALS: BP 132/72
--- NOTE | 2017-05-08 11:15 | NUR ---
ASSESSED PT'S LEFT LEG, NO SIGNS AND SYMPTOMS OF REDNESS AND PUS. PT DOESN'T C/O PAIN, PULSE WAS FELT ON BILATERAL LEGS. BUSINESS CONSULTANT NOTIFIED. PT ENCOURAGED TO WORK WITH PT, AMBULATE, OR PERFORM ACTIVE RANGE OF MOTION. CONTINUE TO MONITOR PT.
[2017-05-08 11:47] LABS: BASOPHILS # (AUTO) 0.1 K/uL (0.0-8.0); BASOPHILS % (AUTO) 1.2 % (0.0-2.0); EOSINOPHILS # (AUTO) 0.1 K/uL (0.0-0.7); EOSINOPHILS % (AUTO) 1.1 % (0.0-7.0); HEMATOCRIT 22.4 % (36.7-47.1); HEMOGLOBIN 7.5 g/dL (12.5-16.3); LYMPHOCYTES # (AUTO) 1.1 K/uL (20.0-40.0); LYMPHOCYTES % (AUTO) 10.2 % (20.5-51.5); MEAN CORPUSCULAR HEMOGLOBIN 30.6 uug (23.8-33.4); MEAN CORPUSCULAR HGB CONC 34 g/dL (32.5-36.3); MEAN CORPUSCULAR VOLUME 91.2 fL (73.0-96.2); MONOCYTES # (AUTO) 0.8 K/uL (2.0-10.0); MONOCYTES % (AUTO) 7.7 % (0.0-11.0); NEUTROPHILS # (AUTO) 8.6 K/uL (1.8-8.9); NEUTROPHILS % (AUTO) 79.8 % (38.5-71.5); PLATELET COUNT (AUTO) 557 K/uL (152-348); WHITE BLOOD COUNT (AUTO) 10.8 K/uL (3.6-10.2)
[2017-05-08 11:48] LABS: RED BLOOD CELL COUNT(AUTO) 2.46 MIL/uL (4.06-5.63)
[2017-05-08 12:18] LABS: BAND % (MANUAL) 3 % (0-10); EOSINOPHILS % (MANUAL) 1 % (0-8); LYMPHOCYTES % (MANUAL) 6 % (20-40); METAMYELOCYTES % 1 % (0-1); MONOCYTES % (MANUAL) 8 % (2-10); MYELOCYTES % 2 % (0-0); NEUTROPHILS % (MANUAL) 79 % (42-75)
--- NOTE | 2017-05-08 13:39 | NUR ---
CLINICAL PHARMACY NOTE:VANCOMYCIN DOSING Continue vancomycin dosing on 76 y/o male 5'10" 234lbs for suspected infection(SIRS with leukocytosis) Temp 98.4 BUN 17 Scr 0.9 WBC 13.7 (05/07) Trough: 21.8 today at 0030 Assessment/Plan Due to high level, dose at 0100 held, will change regimen from 1500mg q11h to 1500mg q14hr for new estimated trough of 15.6. First dose today at 0900. Will order trough before 4th scheduled dose (not ordered yet). Will follow
[2017-05-08 15:09] VITALS: BP 130/68
[2017-05-08] MEDS: RIVAROXABAN 10 MG TABLET PO SCH (18:12)
--- NOTE | 2017-05-08 18:48 | NUR ---
PT OBSERVED RESTING IN BED,CALM, NO SIGNS OF RESPIRATORY DISTRESS.BED AT LOWEST LOCKED POSITION, SKIN INTACT, PHOTOS TAKEN OF HITESH. GIVE REPORT SUBSTATION SUPERINTENDENT.
[2017-05-08 20:00] VITALS: BP 128/74
--- NOTE | 2017-05-08 20:00 | NUR ---
RECEIVED ORDER FOR PATIENT TO BE DISCHARGED TO [facility]. PATIENT IS A/O TO SELF. CONFUSED AND TIMES AND NEEDS FREQUENT REDIRECTION. PATIENT FOLLOWS DIRECTIONS WELL. DENIES PAIN WHEN ASKED. NO S/S ANY PAIN OR DISCOMFORT. NO RESP. DISTRESS NOTED. DRESSINGS NOTED TO LEFT HIP/THIGH, C/D/I. VS WNL. HEP-LOCK REMOVED ORDERED FOR DISCHARGE. BED ALARM ON. CALL LIGHT IN REACH. ALL NEEDS ATTENDED. WILL CONTINUE TO MONITOR AND ASSESS.
--- NOTE | 2017-05-08 22:55 | NUR ---
AMBULANCE TRANSPORT AT BEDSIDE TO [facility] AND TRANSFER TO TO [facility].
--- NOTE | 2017-05-08 23:10 | NUR ---
PATIENT LEFT FACILITY IN STABLE CONDITION VIA AMBULANCE TRANSPORT. VSS UPON DISCHARGE. ALL NEEDS ATTENDED.
== END 2017-05-08 23:10 | DRG 480 ==
LOC: ER 14:13 → TELE 15:31 → MED 04-30 17:26
PROVIDERS: ADMIT Internal Medicine; ATTEND Internal Medicine
PROC: 0QS906Z Reposition Left Femoral Shaft with Intramedullary Internal Fixation Device, Open Approach (ICD-10-PCS; principal; 2017-04-29 18:04)
DX: S72.342A Displaced spiral fracture of shaft of left femur, initial encounter for closed fracture (principal); E43 Unspecified severe protein-calorie malnutrition; D68.59 Other primary thrombophilia; E11.65 Type 2 diabetes mellitus with hyperglycemia; E22.2 Syndrome of inappropriate secretion of antidiuretic hormone; R65.10 Systemic inflammatory response syndrome (SIRS) of non-infectious origin without acute organ dysfunction; D64.9 Anemia, unspecified; E83.39 Other disorders of phosphorus metabolism; J98.11 Atelectasis; M97.12XA Periprosthetic fracture around internal prosthetic left knee joint, initial encounter; E83.42 Hypomagnesemia; F03.90 Unspecified dementia, unspecified severity, without behavioral disturbance, psychotic disturbance, mood disturbance, and anxiety; Z68.35 Body mass index [BMI] 35.0-35.9, adult; E66.9 Obesity, unspecified; M51.36 Other intervertebral disc degeneration, lumbar region; W19.XXXA Unspecified fall, initial encounter; Y92.89 Other specified places as the place of occurrence of the external cause; N40.1 Benign prostatic hyperplasia with lower urinary tract symptoms; N32.81 Overactive bladder; Z74.09 Other reduced mobility; Z96.652 Presence of left artificial knee joint; I25.2 Old myocardial infarction; I25.10 Atherosclerotic heart disease of native coronary artery without angina pectoris; E53.8 Deficiency of other specified B group vitamins; M19.90 Unspecified osteoarthritis, unspecified site; I11.9 Hypertensive heart disease without heart failure; I70.0 Atherosclerosis of aorta; E87.6 Hypokalemia; K80.20 Calculus of gallbladder without cholecystitis without obstruction; M47.814 Spondylosis without myelopathy or radiculopathy, thoracic region; M47.816 Spondylosis without myelopathy or radiculopathy, lumbar region; E55.9 Vitamin D deficiency, unspecified; E86.9 Volume depletion, unspecified; F32.9 Major depressive disorder, single episode, unspecified
CPT/HCPCS: 36415; 70030-TC; 71045; 71250; 72170; 73551; 76001; 82306; 82533; 83550; 83690; 83735; 84100; 84300; 84443; 84550; 85018; 85025; 85730; 87040; 87086; 93005; 93307; 97110; 97112; 97530; A4649; A4663; C1713; C1769; J0690; J0696; J1100; J1815; J1956; J2270; J2543; J3010; J3370; J3420; J3475; J3480; J3490; J7030; J7040; J7042; J7050; J7060